=== PATIENT | female | born 1985 | race Caucasian/White ===

== ENCOUNTER 2017-10-01 16:22 | Emergency (ER) | payer MEDICAID ==
[~2017-10-01] VITALS: Ht 160 cm; Wt 114.9 kg
[2017-10-01 16:56] VITALS: BP 110/77
--- NOTE | 2017-10-01 17:18 | NUR ---
31 YO F BIB self with c/o DURAN and fever x 6 days. DURAN reported at 6/10 with minimal relief by meds/nonpharmacological measures. Pt did not take temp, but, "knows she had a fever" based on shakiness. States that throat is painful (6/10), eyes watery and hard to open. Pt has hx of asthma and DM2. Pt reports that she has been taking, OTC "Next Tablets" but they have not releived her symptoms. Pt is not dizzy. Steady gait. No visual disturbances. Throat redness noted w/o swelling. No acute distress noted. PA at bedside. Needs met at this time. Will continue to monitor.
[2017-10-01] MEDS ORDERED: ALBUTEROL 0.083% 2.5 MG/3 ML NEBU INH ONE (17:25)
[2017-10-01] MEDS ORDERED: ACETAMINOPHEN EXTRA STRENGTH 500 MG TAB PO ONE (17:25)
[2017-10-01] MEDS ORDERED: IBUPROFEN 600 MG TAB PO ONE (17:25)
--- NOTE | 2017-10-01 17:34 | NUR ---
RT at chair side for breathing treatment.
[2017-10-01 18:37] VITALS: BP 109/68
--- NOTE | 2017-10-01 18:38 | NUR ---
Patient discharged with v/s stable. Written and verbal after care instructions given and explained. Patient alert, oriented and verbalized understanding of instructions. Ambulatory with steady gait. All questions addressed prior to discharge. ID band removed. Patient advised to follow up with PMD. Rx of PROMRTHAZINE, CLARITIN, IBU given. Patient educated on indication of medication including possible reaction and side effects. Opportunity to ask questions provided and answered.
== END 2017-10-01 18:38 | disposition home or self-care (01) ==
LOC: MED 16:22
DX: J06.9 Acute upper respiratory infection, unspecified (principal); J45.909 Unspecified asthma, uncomplicated; E11.9 Type 2 diabetes mellitus without complications
CPT/HCPCS: 71045; 81025; 94640; 99283; J7613

== ENCOUNTER 2019-04-19 08:33 | Emergency (ER) | payer MEDICAID ==
[~2019-04-19] VITALS: Ht 162.6 cm; Wt 114.8 kg
[2019-04-19 08:38] VITALS: BP 127/77
--- NOTE | 2019-04-19 08:49 | NUR ---
33/F BIB SELF C/O NOTED VAGINAL BLEEDING UPON WIPING X TODAY. DENIES INJURY OR PAIN. DENIES DYSURIA. . LMP 11/30/2018. URINE PREG TEST POSITIVE. HX--ASTHMA. PATIENT STATES PAIN OF 0/10 AT THIS TIME. PATIENT POSITIONED FOR COMFORT; HOB ELEVATED; BEDRAILS UP X1; BED DOWN. ER MD MADE AWARE OF PT STATUS.
--- NOTE | 2019-04-19 09:28 | NUR ---
BLOOD & URINE SPECIMENS SENT TO LAB.
--- NOTE | 2019-04-19 09:32 | NUR ---
PT TAKEN TO US
[2019-04-19 09:36] LABS: BASOPHILS % (AUTO) 0.4 % (0.0-2.0); EOSINOPHILS # (AUTO) 0.1 K/uL (0-0.4); EOSINOPHILS % (AUTO) 1.6 % (0.0-4.0); HEMATOCRIT 39.1 % (36-48); HEMOGLOBIN 12.7 g/dL (12.0-16.0); LYMPHOCYTES # (AUTO) 1.8 K/uL (2.5-16.5); LYMPHOCYTES % (AUTO) 21.6 % (20.5-51.1); MEAN CORPUSCULAR HEMOGLOBIN 29 pg (27-31); MEAN CORPUSCULAR HGB CONC 33 g/dL (33-37); MEAN CORPUSCULAR VOLUME 88.1 fL (80-94); MONOCYTES # (AUTO) 0.4 K/uL (0.8-1.0); MONOCYTES % (AUTO) 4.4 % (1.7-9.3); NEUTROPHILS # (AUTO) 6.1 K/uL (1.8-7.7); PLATELET COUNT (AUTO) 195 K/uL (140-450); RED BLOOD CELL COUNT(AUTO) 4.44 MIL/uL (4.20-5.40); RED CELL DISTRIBUTION WIDTH 13.6 % (11.6-13.7); WHITE BLOOD COUNT (AUTO) 8.4 K/uL (4.8-10.8)
[2019-04-19 09:38] LABS: APPEARANCE,URINE CLEAR (CLEAR); BILIRUBIN,URINE NEGATIVE (NEGATIVE); BLOOD, URINE NEGATIVE (NEGATIVE); COLOR,URINE YELLOW (YELLOW); LEUKOCYTE ESTERASE ,URINE TRACE (NEGATIVE); NITRITE, URINE NEGATIVE (NEGATIVE); PH,URINE 6.5 (5.0-9.0); UGLUCOSE NEGATIVE (NEGATIVE)
[2019-04-19 09:56] LABS: RBC,URINE 0-5 /HPF (0-5); WBC,URINE 0-5 /HPF (0-5)
[2019-04-19 10:27] VITALS: BP 121/69
--- NOTE | 2019-04-19 10:27 | NUR ---
Patient discharged with v/s stable. Written and verbal after care instructions given and explained. Patient verbalized understanding. Ambulatory with steady gait. All questions addressed prior to discharge. Advised to follow up with PMD.
== END 2019-04-19 10:27 | disposition home or self-care (01) ==
LOC: MED 08:33
DX: O20.0 Threatened abortion (principal); O99.511 Diseases of the respiratory system complicating pregnancy, first trimester; J45.909 Unspecified asthma, uncomplicated; O24.111 Pre-existing type 2 diabetes mellitus, in pregnancy, first trimester; E11.9 Type 2 diabetes mellitus without complications; Z3A.10 10 weeks gestation of pregnancy
CPT/HCPCS: 36415; 76817; 81001; 81025; 84702; 85025; 86900; 86901; 99284; Q0092

== ENCOUNTER 2020-07-26 20:24 | Emergency (ER) | payer MEDICAID ==
[~2020-07-26] VITALS: Ht 162.6 cm; Wt 106.6 kg
[2020-07-26 20:30] VITALS: BP 131/75
--- NOTE | 2020-07-26 20:30 | NUR ---
TO TENT AMBULATORY
[2020-07-26 20:42] VITALS: BP 131/75
--- NOTE | 2020-07-26 23:45 | NUR ---
SEEN AND EXAMINED BY [facility] WITH ORDERS AND CARRIED OUT
[2020-07-27 00:16] LABS: BASOPHILS % (AUTO) 0.3 % (0.0-2.0); EOSINOPHILS % (AUTO) 0.2 % (0.0-4.0); HEMOGLOBIN 14.4 g/dL (12.0-16.0); LYMPHOCYTES # (AUTO) 1.5 K/uL (2.5-16.5); LYMPHOCYTES % (AUTO) 39.7 % (20.5-51.1); MEAN CORPUSCULAR HEMOGLOBIN 28 pg (27-31); MEAN CORPUSCULAR HGB CONC 34 g/dL (33-37); MONOCYTES # (AUTO) 0.4 K/uL (0.8-1.0); MONOCYTES % (AUTO) 10.6 % (1.7-9.3); NEUTROPHILS # (AUTO) 1.8 K/uL (1.8-7.7); NEUTROPHILS % (AUTO) 49.2 % (42.2-75.2); PLATELET COUNT (AUTO) 186 K/uL (140-450); RED BLOOD CELL COUNT(AUTO) 5.12 MIL/uL (4.20-5.40); RED CELL DISTRIBUTION WIDTH 13.5 % (11.6-13.7); WHITE BLOOD COUNT (AUTO) 3.7 K/uL (4.8-10.8)
[2020-07-27 00:30] LABS: ALBUMIN 3.6 g/dL (3.4-5.0); ANION GAP 12.2 (8-16); CARBON DIOXIDE 29.1 mmol/L (21-32); CREATININE 0.5 mg/dL (0.6-1.3); POTASSIUM 3.3 mmol/L (3.5-5.1); TOTAL BILIRUBIN 0.5 mg/dL (0.0-1.0)
--- NOTE | 2020-07-27 01:50 | NUR ---
ALL RESULTS BACK AND NOTED BY ERMD AND FOR D/C
--- NOTE | 2020-07-27 02:15 | NUR ---
RE EVALUATED BY ERMD.
--- NOTE | 2020-07-27 02:25 | NUR ---
Patient discharged with v/s stable. Written and verbal after care instructions given and explained. Patient alert, oriented and verbalized understanding of instructions. Ambulatory with steady gait. All questions addressed prior to discharge. ID band removed. Patient advised to follow up with PMD. Rx of TESSALON, ZINC, ZITHROMAX given. Patient educated on indication of medication including possible reaction and side effects. Opportunity to ask questions provided and answered.
== END 2020-07-27 02:25 | disposition home health service (06) ==
LOC: MED 20:24
DX: U07.1 COVID-19 (principal); J12.89 Other viral pneumonia; J45.909 Unspecified asthma, uncomplicated; E11.9 Type 2 diabetes mellitus without complications
CPT/HCPCS: 36415; 71045; 80053; 81025; 83880; 84484; 84703; 85025; 93005; 99283

== ENCOUNTER 2022-11-05 18:10 | Emergency (ER) | payer MEDICAID ==
[~2022-11-05] VITALS: Ht 162.6 cm; Wt 101.6 kg
[2022-11-05 18:25] VITALS: BP 117/77
--- NOTE | 2022-11-05 20:41 | NUR ---
MD Guerra assessing pt at this time.
[2022-11-05] MEDS ORDERED: BENZ200C4 PO (21:22)
[2022-11-05] MEDS ORDERED: DEXAMETHASONE 4 MG/ML VIAL PO ONE (21:25)
[2022-11-05] MEDS ORDERED: DEXAMETHASONE 4 MG TAB PO ONE (21:25)
[2022-11-05] MEDS ORDERED: DEXAMETHASONE 4 MG TAB ONE (22:54)
[2022-11-05 23:09] VITALS: BP 122/85
== END 2022-11-05 23:11 | disposition home or self-care (01) ==
LOC: MED 18:10
DX: J06.9 Acute upper respiratory infection, unspecified (principal); J45.909 Unspecified asthma, uncomplicated; E11.9 Type 2 diabetes mellitus without complications; Z79.899 Other long term (current) drug therapy
CPT/HCPCS: 71045; 99283

== ENCOUNTER 2023-06-25 12:44 | Emergency (ER) | payer MEDICAID ==
[~2023-06-25] VITALS: Ht 162.6 cm; Wt 107.0 kg
[~2023-06-25 12:44] MED LIST: BENZ200C4 PO
[2023-06-25 13:46] VITALS: BP 118/73; PULSE 67; RESP 18; TEMP 97.6; O2SAT 98
[2023-06-25] MEDS ORDERED: NAPR-1704 PO (16:59)
[2023-06-25] MEDS ORDERED: DICL100G32 TP (16:59)
[2023-06-25] MEDS: KETOROLAC 30 MG/ML VIAL IM ONE (17:16)
[2023-06-25 17:38] VITALS: BP 110/73; PULSE 80; RESP 18; TEMP 98; O2SAT 99
== END 2023-06-25 17:38 | disposition home or self-care (01) ==
LOC: MED 12:44
DX: M17.11 Unilateral primary osteoarthritis, right knee (principal); M25.551 Pain in right hip; J45.909 Unspecified asthma, uncomplicated; E11.9 Type 2 diabetes mellitus without complications; I10 Essential (primary) hypertension; Z79.899 Other long term (current) drug therapy; Z79.1 Long term (current) use of non-steroidal anti-inflammatories (NSAID)
CPT/HCPCS: 73502; 73562; 96372; 99284; J1885